=== PATIENT | male | born 1985 | race African-American/Black ===

== ENCOUNTER 2023-08-24 20:14 | Emergency (ER) | payer SELFPAY ==
[2023-08-24 21:28] LABS: Influenza A by NAA Not Detected (NotDetected); Influenza B by NAA Not Detected (NotDetected); SARS-CoV-2 NAA Rapid Test Not Detected (NotDetected)
[2023-08-24] MEDS ORDERED: Ipratropium/Albuterol 3 ML NEB ONE (21:28)
== END 2023-08-24 22:46 | disposition home or self-care (01) ==
LOC: CSHERS 20:14
DX: J06.9 Acute upper respiratory infection, unspecified (principal); R06.2 Wheezing; E11.9 Type 2 diabetes mellitus without complications
CPT/HCPCS: 71045; 93005; 94640; 94760; J7620

== ENCOUNTER 2023-08-25 12:43 | Emergency (ER) | payer SELFPAY | END 2023-08-25 13:50 | disposition home or self-care (01) | LOC: CSHERS 12:43 | DX: J06.9 Acute upper respiratory infection, unspecified (principal); E11.9 Type 2 diabetes mellitus without complications; F17.210 Nicotine dependence, cigarettes, uncomplicated | CPT/HCPCS: 93005; 93010; 96372; J1100; J7620 ==